=== PATIENT | female | born 1985 | race Caucasian/White ===

== ENCOUNTER 2017-11-22 17:30 | Observation (INO) | payer OTHER ==
[2017-11-22] MEDS ORDERED: Sodium Chloride 0.9% 1,000 ML IV ONE (18:33)
[2017-11-22] MEDS ORDERED: Acetaminophen 650 MG Supp RECTAL PRN (18:34)
[2017-11-22] MEDS ORDERED: Pseudoephedrine 30 MG Tab PO PRN (18:36)
[2017-11-22] MEDS: guaiFENesin/Dextromethorphan 100-10 MG/5 ML Soln 5 ML Cup PO PRN ×2 (19:10→23:10)
[2017-11-22] MEDS: Sodium Chloride 0.9% 1,000 ML IV SCH (20:13)
[2017-11-22] MEDS: Oseltamivir 75 MG Cap PO SCH (20:23)
[2017-11-22] MEDS: Acetaminophen 325 MG Tab PO PRN (23:08)
[2017-11-23] MEDS: guaiFENesin/Dextromethorphan 100-10 MG/5 ML Soln 5 ML Cup PO PRN (04:10)
[2017-11-23] MEDS: Acetaminophen 325 MG Tab PO PRN ×3 (04:10→16:01)
[2017-11-23] MEDS: Sodium Chloride 0.9% 1,000 ML IV SCH ×2 (04:12→12:23)
[2017-11-23] MEDS ORDERED: diphenhydrAMINE 25 MG Cap PO ONE (04:27)
[2017-11-23 08:43] LABS: CHLORIDE,CL 108 mmol/L (98-115); SODIUM,NA 140 mmol/L (136-145)
[2017-11-23] MEDS: Oseltamivir 75 MG Cap PO SCH ×2 (09:44→17:36)
[2017-11-23] MEDS ORDERED: diphenhydrAMINE 25 MG Cap PO PRN (10:55)
--- NOTE | 2017-11-23 16:17 | PCM.DCSUM1 ---
Discharge Summary - Hospital Course Free Text/Narrative:: 32 yo Pt is - 21 week gestation. She was admitted from the clinic to hospital after testing positive for influenza A. She reported flu like symptoms since 11/07/18 with worsening of symptoms - fatigue, body aches, diaphoresis, chills, stuffy nose, painful cough, low grade fever, poor appetite, vomiting and day prior to admission, diarrhea. She denies any contractions. Pt had received the influenza vaccine. Pt was admitted to observation for IV fluids, rehydration support. She was treated with Tamaflu 75 mg bid which she will continue after discharge for total of 5 days. On day of discharge, pt is requesting to go home as she is feeling much better. She has eaten without any further nausea or vomiting. She has not had any stools since her last diarrhea stool 2 days ago. She does have a temp of 99.3. Fever has been controlled with tylenol and pt will continue to use same q 4 hrs prn to control fever. She reported headache and neck stiffness improved. All other body aches have resolved. HPI Initial Comments: Influenza A positive pt Admitted for fluid support - Discharge Data Discharge Date: 11/23/17 Discharge Disposition: Home, Self-Care 01 Condition: Good - Discharge Diagnosis/Problem(s) (1) Influenza A SNOMED Code(s): 063028033 ICD Code: J10.1 - FLU DUE TO OTH IDENT INFLUENZA VIRUS W OTH RESP MANIFEST Status: Acute - Patient Instructions Diet, Other: avoid spicy or fatty foods. increase fluids Activity: As Tolerated Driving: May Drive Today Showering/Bathing: May Shower Notify Provider of: Fever, Nausea and/or Vomiting - Discharge Plan Prescriptions/Med Rec: Oseltamivir [Tamiflu] 75 mg PO BID #8 cap Home Medications: Home Meds Oseltamivir [Tamiflu] 75 mg PO BID #8 cap 11/23/17 [Rx] Patient Handouts: Influenza, Adult, [id number] - Discharge Summary/Plan Comment Discharge Summary/Plan Comment: Pt has 3 yr old son, Joseph Calhoun, 02/18/14 with fever 101, 2 yr old daughter, Cheyanne Calhoun 09/19/15 with fever of 100. Prescription for tamaflu 30 mg bid has been called in to [facility] for each of these children. Her , Otf Calhoun also having fever and aches. Prescription called for Tamaflu 75 mg bid x 5 days. Pt has been advised to increase fluids, use tylenol prn to manage fever and aches. Return to hospital if any signs of contractions. - Patient Data Vitals - Most Recent: Last Vital Signs Temp 99.3 F 11/23/17 16:01 Pulse 99 11/23/17 15:00 Resp 20 11/23/17 15:00 BP 91/53 L 11/23/17 15:00 Pulse Ox 95 11/23/17 15:00 Weight - Most Recent: 158 lb 1.6 oz I&O - Last 24 hours: Intake & Output 11/23/17 11/23/17 11/23/17 06:59 14:59 22:59 Intake Total 993 1655 Balance 993 1655 Lab Results - Last 24 hrs: Laboratory Results - last 24 hr 11/22/17 11/23/17 11/23/17 Range/Units 20:20 07:24 07:24 WBC 5.8 (5.0-10.0) 10^3/uL RBC 3.70 L (3.80-5.50) 10^6/uL Hgb 10.3 L (12.0-16.0) g/dL Hct 32.8 L (37.0-47.0) % MCV 88.5 (82.0-92.0) fL MCH 27.8 (27.0-31.0) pg MCHC 31.4 L (32.0-36.0) g/dL RDW 12.6 (11.5-14.5) % Plt Count 195 (150-300) 10^3/uL MPV 7.4 (7.4-10.4) fL Neut % (Auto) 75.6 H (50.0-70.0) % Lymph % (Auto) 14.5 L (20.0-40.0) % [place] % (Auto) 9.0 H (2.0-8.0) % Eos % (Auto) 0.5 L (1.0-3.0) % Baso % (Auto) 0.4 (0.0-1.0) % Neut # (Auto) 4.5 (2.5-7.0) 10^3/uL Lymph # (Auto) 0.8 L (1.0-4.0) 10^3/uL [place] # (Auto) 0.5 (0.1-0.8) 10^3/uL Eos # (Auto) 0.0 L (0.1-0.3) 10^3/uL Baso # (Auto) 0.0 (0.0-0.1) 10^3/uL Sodium 140 (136-145) mmol/L Potassium 3.5 (3.3-5.3) mmol/L Chloride 108 (98-115) mmol/L Carbon Dioxide 21.0 (21.0-32.0) mmol/L BUN 4 L (6-25) mg/dL Creatinine 0.50 L (0.51-1.17) mg/dL Est Cr Clr Drug Dosing 144.00 mL/min Estimated GFR (MDRD) > 60 mL/min Glucose 100 (70-110) mg/dL Calcium 7.7 L (8.7-10.3) mg/dL Specimen Type Urincc Urine Color Yellow (YELLOW) Urine Appearance Clear (CLEAR) Urine pH 6.0 (5.0-9.0) Ur Specific Emmett 1.010 (1.005-1.030) Urine Protein Negative (NEGATIVE) mg/dL Urine Glucose (UA) Negative (NEGATIVE) mg/dL Urine Ketones 15 H (NEGATIVE) mg/dL Urine Occult Blood Negative (NEGATIVE) Urine Nitrite Negative (NEGATIVE) Urine Bilirubin Negative (NEGATIVE) Urine Urobilinogen 0.2 (0.2-1.0) E.U./dL Ur Leukocyte Esterase Negative (NEGATIVE) Urine RBC 0-5 /HPF Urine WBC 5-10 H /HPF Ur Epithelial Cells Few /LPF Urine Bacteria Occasional (NONE TO FEW) /HPF Urine Mucus Moderate H (NEGATIVE) /LPF Med Orders - Current: Current Medications Acetaminophen (Tylenol) 650 mg RECTAL Q4H PRN PRN Reason: Fever Acetaminophen (Tylenol) 650 mg PO Q4H PRN PRN Reason: Fever Last Admin: 11/23/17 16:01 Dose: 650 mg Diphenhydramine HCl (Benadryl) 25 mg PO BEDTIME PRN PRN Reason: Insomnia Guaifenesin/Phenylephrine HCl (Robitussin Dm) 10 ml PO Q4H PRN PRN Reason: Cough Last Admin: 11/23/17 04:10 Dose: 10 ml Sodium Chloride (Normal Saline) 1,000 mls @ 125 mls/hr IV ASDIRECTED TIAN Last Admin: 11/23/17 12:23 Dose: 125 mls/hr Oseltamivir Phosphate (Tamiflu) 75 mg PO BID TIAN Last Admin: 11/23/17 09:44 Dose: 75 mg Pseudoephedrine HCl (Sudogest) 30 mg PO Q6H PRN PRN Reason: Sinus congestion Last Admin: 11/22/17 20:23 Dose: 30 mg Discontinued Medications Diphenhydramine HCl (Benadryl) 25 mg PO ONETIME ONE Stop: 11/23/17 04:28 Last Admin: 11/23/17 04:47 Dose: 25 mg Sodium Chloride (Normal Saline) 1,000 mls @ 999 mls/hr IV .BOLUS ONE Stop: 11/22/17 19:33 Last Admin: 11/22/17 18:58 Dose: 999 mls/hr *Q Meaningful Use (DIS) - VTE *Q VTE Criteria *Q: - Stroke *Q Stroke Criteria *Q: - AMI *Q AMI Criteria *Q:
== END 2017-11-23 18:25 | disposition home or self-care (01) ==
LOC: KA.MS 17:30
PROVIDERS: ADMIT Nurse Practitioner Family; ATTEND Nurse Practitioner Family
DX: O99.512 Diseases of the respiratory system complicating pregnancy, second trimester (principal); J10.1 Influenza due to other identified influenza virus with other respiratory manifestations; Z79.899 Other long term (current) drug therapy; Z3A.21 21 weeks gestation of pregnancy
CPT/HCPCS: 36415; 80048; 81001; 85025; 87040; 96360; 96361; A9270; G0378; J7030